=== PATIENT | female | born 1995 | race Hispanic/Latino ===

== ENCOUNTER 2022-03-31 20:22 | Emergency (ER) | payer OTHER ==
[~2022-03-31] VITALS: Ht 157.5 cm; Wt 68.5 kg
[2022-03-31] MEDS ORDERED: DIPHTH/TETANUS/ACEL. PERTUSSIS 0.5 ML SYR IM ONE (21:00)
[2022-03-31] MEDS ORDERED: ACETAMINOPHEN 325 MG TAB PO ONE (21:00)
[2022-03-31] MEDS ORDERED: LIDOCAINE HCL 1% LOCAL INJ 20 ML VIAL ONE (21:07)
[2022-03-31] MEDS ORDERED: TETANUS/DIPHTHERIA TOX ADULT 0.5 ML SYR ONE (21:17)
[2022-03-31] MEDS ORDERED: ACETAMINOPHEN 325 MG TAB ONE (21:17)
[2022-03-31 23:46] VITALS: BP 117/69
== END 2022-03-31 23:53 | disposition home or self-care (01) ==
LOC: FSED 20:27
DX: S01.01XA Laceration without foreign body of scalp, initial encounter (principal); W20.8XXA Other cause of strike by thrown, projected or falling object, initial encounter; Y93.B1 Activity, exercise machines primarily for muscle strengthening; Y92.89 Other specified places as the place of occurrence of the external cause; Z88.1 Allergy status to other antibiotic agents; Z88.0 Allergy status to penicillin; Z23 Encounter for immunization
CPT/HCPCS: 12001; 70450; 81025; 90471; 90714; 99283; J2001

== ENCOUNTER 2022-04-15 13:08 | Emergency (ER) | payer OTHER ==
[~2022-04-15] VITALS: Ht 157.5 cm; Wt 68.5 kg
== END 2022-04-15 13:34 | disposition home or self-care (01) ==
LOC: FSED 13:25
DX: Z48.02 Encounter for removal of sutures (principal)
CPT/HCPCS: 99283